=== PATIENT | female | born 1970 | race African-American/Black ===

== ENCOUNTER 2021-12-29 11:38 | Emergency (ER) | payer OTHER ==
[~2021-12-29] VITALS: Ht 167.6 cm; Wt 91.0 kg
[2021-12-29 11:58] VITALS: BP 148/91
[2021-12-29] MEDS ORDERED: IBUPROFEN 600MG TABLET PO STA (13:41)
== END 2021-12-29 14:03 | disposition left against medical advice (07) ==
LOC: ER 12:01
DX: S20.219A Contusion of unspecified front wall of thorax, initial encounter (principal); I10 Essential (primary) hypertension; H91.90 Unspecified hearing loss, unspecified ear; Z90.710 Acquired absence of both cervix and uterus; Z98.890 Other specified postprocedural states; Z88.6 Allergy status to analgesic agent; Y08.89XA Assault by other specified means, initial encounter; Y93.89 Activity, other specified; Y92.89 Other specified places as the place of occurrence of the external cause; Y99.8 Other external cause status
CPT/HCPCS: 99282